=== PATIENT | male | born 1965 | race African-American/Black ===

== ENCOUNTER 2023-07-02 04:22 | Day surgery (SDC) | payer BC ==
[2023-06-26 11:19] VITALS: BMI 26.9
[2023-07-02 08:37] VITALS: RESP 18
[2023-07-02 09:48] VITALS: TEMP 97.9
[2023-07-02 12:17] VITALS: BP 138/80; PULSE 68
== END 2023-07-02 10:15 | disposition home or self-care (01) ==
LOC: JASU-ENDO 04:22
PROVIDERS: ATTEND Internal Medicine Gastroenterology
PROC: 0DJD8ZZ Inspection of Lower Intestinal Tract, Via Natural or Artificial Opening Endoscopic (ICD-10-PCS; principal; 2023-07-02 09:00)
DX: Z12.11 Encounter for screening for malignant neoplasm of colon (principal); K57.30 Diverticulosis of large intestine without perforation or abscess without bleeding; Z86.010 Personal history of colon polyps